=== PATIENT | female | born 1990 | race Two or more races ===

== ENCOUNTER 2018-12-09 07:45 | Emergency (ER) | payer SELFPAY ==
[~2018-12-09] VITALS: Ht 165.1 cm; Wt 57.2 kg
--- NOTE | 2018-12-09 08:15 | NUR ---
BIB SELF FROM HOME WITH FAMILY. AAOX4. NAD NOTED, BREATHING EVEN AND UNLABORED. AMBULATORY. C/O LOWER ABDOMINAL PAIN W/ SENSTION OF SHARP CONSTANT SHOOTING PAIN SINCE YESTERDAY RATES PAIN 01/05. PT ALSO REPORTS NAUSEA BUT NO VOMITING OR DIARRHEA. TO ER BED 11. MD AT BEDSIDE AWAITING ORDERS
[2018-12-09] MEDS ORDERED: KETOROLAC TROMETHAMINE INJ 30 MG/ML VIAL IV ONE (08:30)
[2018-12-09] MEDS ORDERED: ONDANSETRON HCL/PF 4 MG/2 ML VIAL IVP ONE (08:30)
[2018-12-09 08:34] LABS: BASOPHILS % (AUTO) 0.9 % (0.0-2.0); EOSINOPHILS % (AUTO) 1.9 % (0.0-6.0); HEMATOCRIT 34 % (33-45); HEMOGLOBIN 10.8 g/dL (11.5-14.8); LYMPHOCYTES # (AUTO) 1.1 /CMM (0.8-4.8); LYMPHOCYTES % (AUTO) 22.7 % (20.0-44.0); MEAN CORPUSCULAR HGB CONC 31 g/dl (31.0-36.0); MEAN CORPUSCULAR VOLUME 71 fL (82-100); MONOCYTES # (AUTO) 0.5 /CMM (0.1-1.30); MONOCYTES % (AUTO) 10.3 % (2.0-12.0); NEUTROPHILS # (AUTO) 3.2 /CMM (1.8-8.9); NEUTROPHILS % (AUTO) 64.2 % (43.0-81.0); PLATELET COUNT (AUTO) 246 /CMM (150-450); RED BLOOD CELL COUNT(AUTO) 4.81 MIL/uL (4.0-5.2); WHITE BLOOD COUNT (AUTO) 4.9 K/uL (4.3-11.0)
[2018-12-09] MEDS ORDERED: HYDROMORPHONE 1 MG/1 ML DISP.SYRIN ONE (08:46)
--- NOTE | 2018-12-09 08:50 | NUR ---
DILAUDID 0.5MG GIVEN VIA IV. PT REPORTS ITCHING AND NOTED HIVES ON L WRIST . AAMADE AWARE RECEIVED ORDERS FOR BENADRYL 25MG. NOTED AND CARRIED OUT
[2018-12-09] MEDS ORDERED: ONDANSETRON HCL/PF 4 MG/2 ML VIAL ONE (08:52)
[2018-12-09 08:54] LABS: CALCIUM, SERUM 8.7 mg/dL (8.5-10.1); CREATININE 0.7 mg/dL (0.6-1.3)
[2018-12-09] MEDS ORDERED: diphenhydrAMINE HCL 50 MG/ML VIAL ONE (08:55)
[2018-12-09 09:00] LABS: ALBUMIN 3.7 g/dL (3.4-5.0); BILIRUBIN,DIRECT 0.2 mg/dL (0.0-0.2); BILIRUBIN,TOTAL 1.1 mg/dL (0.2-1.0); TOTAL PROTEIN, SERUM 6.7 g/dL (6.4-8.2)
[2018-12-09] MEDS ORDERED: HYDROMORPHONE INJ 0.5 MG/0.5 ML SYRINGE IV ONE (09:00)
[2018-12-09] MEDS ORDERED: diphenhydrAMINE HCL 50 MG/ML VIAL IV ONE (09:00)
--- NOTE | 2018-12-09 09:13 | NUR ---
US AT BEDSIDE. PT TO ER 16 FOR PELVIC US
[2018-12-09 09:39] LABS: APPEARANCE,URINE Clear (CLEAR); BILIRUBIN,URINE Negative (NEGATIVE); BLOOD, URINE Negative Ery/uL (NEGATIVE); COLOR,URINE Yellow (YELLOW); KETONES,URINE 15 (NEGATIVE); LEUKOCYTE ESTERASE ,URINE Trace (NEGATIVE); NITRITE, URINE Negative (NEGATIVE); PH,URINE 5.5 (5.0-8.0); PROTEIN,URINE Negative (NEGATIVE); UGLUCOSE Negative (NEGATIVE); UROBILINOGEN,URINE 0.2 EU/dL (0.2)
[2018-12-09 09:46] LABS: BACTERIA,URINE Many /HPF (None Seen); RBC,URINE 0-2 /HPF (0-2); SQUAMOUS EPITHELIAL CELL,UR Moderate /HPF (None Seen)
--- NOTE | 2018-12-09 10:24 | NUR ---
PATIENT VERBALIZED SHE FEELS BETTER. PATIENT A/OX4, NO DISTRESS NOTED, DENIES PAIN AT THIS TIME. PIV REMOVED. Patient discharged to home in stable condition. Written and verbal after care instructions given. Patient verbalizes understanding of instruction.
[2018-12-09 10:25] VITALS: BP 105/70
== END 2018-12-09 10:26 | disposition home or self-care (01) ==
LOC: ER 07:49
DX: N83.202 Unspecified ovarian cyst, left side (principal); N39.0 Urinary tract infection, site not specified; G35 Multiple sclerosis; Z88.8 Allergy status to other drugs, medicaments and biological substances; Z88.6 Allergy status to analgesic agent
CPT/HCPCS: 36415; 76700; 76856; 80048; 80076; 81001; 84702; 85025; 87086; 96374; 96375; 99284; J1170; J1200; J2405; 81000-TC